=== PATIENT | male | born 1985 | race Hispanic/Latino ===

== ENCOUNTER 2017-02-06 08:02 | Inpatient (IN) | payer MEDICARE, OTHER ==
--- NOTE | 2017-01-31 08:45 | Admit Criteria Form ---
Admission Criteria Documentation: AMBULATORY SURGERY EXCEPTION CRITERIA Ambulatory Surgery Exception Criteria ( Place 'X' for any and all applicable criteria): Surgery or procedure performed on ambulatory basis may require inpatient stay for[A] ANY ONE of the following(1)(2)(3)(4)(5)(6)(7)(8)(9): [X] I. A preoperative situation, condition, or finding that warrants inpatient stay as indicated by ANY ONE of the following: [X] a) Inpatient care needed because of severity of a disease or condition rather than the surgery (eg, severe cardiac or respiratory disease, severe infection) (15) (16 ) (17) (18) [] b) Emergent procedure (eg, angioplasty for acute ischemia)(19) [] c) Complex surgical approach or situation as indicated by ANY ONE of the following(3): [] i) Open approach needed instead of usual endoscopic, transcatheter, or other less invasive procedure [] ii) Difficult approach because of previous operation [] iii) Airway monitoring required after open neck procedures(20)(21) [] iv) Large mass requiring unusually extensive dissection [] v) Additional complicating feature requiring inpatient care (eg, drain management)(22(23): [] d) Major surgery in a pt with high anesthetic risk as indicated by ANY ONE of the following (2)(3)(5)(7)(8): [] i) ASA risk class III or higher (severe systemic disease impairing function) [D] [] ii) Advanced age (eg, older than 85 years)(14)(24) [] iii) Symptomatic heart failure(25) [] iv) Symptomatic asthma or COPD(8)(21) [] v) Morbid obesity with hemodynamic or respiratory problems(20)( 21)(26)(27) [] vi) Obstructive sleep apnea(20)(21) [] vii) Former premature infants who are younger than 60 weeks [] viii) High risk for severe postoperative abnormalities (eg, severe postoperative hypocalcemia after parathyroidectomy for severe hyperparathyroidism)(27)( 28) [] ix) Unstable angina(25) [] e) Drug-related risk requiring inpatient stay as indicated by ANY ONE of the following(5)(10)(14)(32)(33) [] i) Procedure requires discontinuing drugs or other therapy (eg , antiarrhythmic medication, antiseizure medication), which necessitates inpatient observation or treatment.(18)(31) [] ii) Major surgery and high risk drug use as indicated by ANY ONE of the following: [] 1) Active abuse of cocaine or similar drug [] 2) Monoamine oxidase inhibitor use [] 3) Other drug identified as posing risk [] f) Inadequate outpatient care situation as indicated by ANY ONE of the following(5)(10)(14)(32)(33) [] i) Patient lives remote from medical facility and procedure has urgent complication potential, and temporary nearby residence cannot be arranged [] ii) Patient will have postprocedure incapacitation and inadequate assistance at home, or alternative level of care cannot be arranged. [] iii) Patient will have long general anesthesia or procedure side effect resolution time, and competent person to stay with patient on first postoperative night at home or alternative level of care cannot be arranged. []iv) Other inadequate outpatient situation that cannot be handled by other means [] II. A perioperative event, condition, or finding that warrants inpatient stay as indicated by ANY ONE of the following (1)(2)(3): [] a) Inadequate physiologic recovery: cardiovascular, respiratory, or hemodynamic status not normal or near preoperative baseline(18) [] b) Hemodynamic instability [] c) Patient not alert with near normal or baseline mental status [] d) Temperature not normal or as expected and not appropriate for outpatient treatment of condition [] e) Ambulatory or appropriate activity level status not yet achieved post procedure [E](34)(35)(36) [] f) Operative site not appropriate (eg, unexpected or excessive drainage or bleeding) [] g) Postoperative effects not resolved or adequately managed (eg, significant pain or vomiting not appropriate for outpatient or next level of care)(10)(12) [] h) Complicating features requiring inpatient care as indicated by ANY ONE of the following(37): [] i) Severe complications of procedure (eg, bowel injury, airway compromise, vascular injury,severe hemorrhage) [] ii) Extensive (eg, dissection far beyond usual scope of procedure ) or prolonged (eg, 120 minutes beyond usual) surgery needed requiring inpatient postoperative care [] iii) Conversion to an open or complex procedure that requires inpatient care (eg, open vs laparoscopic cholecystectomy, abdominal vs vaginal hysterectomy)(38) [] iv) Comorbid condition or test result identified during or post procedure that requires inpatient care (7) [] v) Malignant hyperthermia(30) [] vi) Other complicating feature requiring inpatient care(22)(23) Inpatient stay may be needed until ALL of the following are present (1)(2)(3)(4) (5)(6)(10)(14)(33)(40): []a) Physiologic recovery: cardiovascular, respiratory, and hemodynamic status normal or near preoperative baseline []b) Hemodynamic stability []c) Patient alert, with near normal or baseline mental status []d) Temperature appropriate: patient afebrile or temperature appropriate for outpt treatment of condition []e) Activity level appropriate: ambulatory or appropriate activity level post procedure []f) Operative site appropriate as indicated by ALL of the following: []i) Site dry or with expected drainage []ii) Any blood noted is as expected for procedure. []g) Postoperative effects resolved or managed as indicated by ALL of the following: []i) Pain management appropriate for outpatient (or next level of) care(10) []ii) Minimal nausea and vomiting: if present, successfully treated with oral medication(12) []iii) Headache, dizziness, or drowsiness (if present) are mild. []h) Voiding status acceptable as indicated by ANY ONE of the following: []i) Voiding spontaneously []ii) No voiding but instructions given for follow-up in 6 to 8 hours []iii) Urinary catheter in place, and instructions given for follow-up []i) Complicating features requiring inpatient care manageable at a lower level of care(37) []j) Comorbid conditions manageable at a lower level of care(37) The original [employer] content created by [employer] has been revised. The portions of the content which have been revised are identified through the use of italic text or in bold, and [employer] has neither reviewed nor approved the modified material. All other unmodified content is copyright [employer]. Please see references footnoted in the original [employer] edition 2016
[~2017-02-06 08:02] MED LIST: ANCEF/STERILE WATER 2 GM/20 ML IV NR
[2017-02-06] MEDS ORDERED: ZOFRAN IV PRN (13:41)
--- NOTE | 2017-02-06 13:42 | Anesthesia Consultation ---
Anesthesia Consult and Med Hx Date of service: 02/06/17 - Airway Anesthetic Teeth Evaluation: Good ROM Head & Neck: Adequate Mental/Hyoid Distance: Adequate Mallampati Class: Class II Intubation Access Assessment: Probably Good - Pulmonary Exam CTA: Yes - Cardiac Exam Cardiac Exam: RRR - Pre-Operative Health Status ASA Pre-Surgery Classification: ASA1 Proposed Anesthetic Plan: General - Pulmonary Hx Smoking: Yes (STOPPED 2014, 1 1/2 PPD X 10YRS) Hx Sleep Apnea: No (TC PRE SCREEN LOW RISK) - Cardiovascular System Hx Hypertension: No - Endocrine Hx End Stage Renal Disease: No Hx Insulin Dependent Diabetes: No Hx Hyperthyroidism: No - Other Systems Hx Cancer: No
--- NOTE | 2017-02-06 13:42 | Anesthesia Day of Surgery ---
Anesthesia Day of Surgery - Day of Surgery Patient Examined: Yes Patient H&P Reviewed: Yes Patient is NPO: Yes
[2017-02-06] MEDS ORDERED: NACL 0.9% 1000 ML 1,000 ML ONE ×2 (13:47→15:52)
[2017-02-06] MEDS ORDERED: VERSED IV NR ×2 (14:00)
[2017-02-06] MEDS ORDERED: NACL 0.9% 1000 ML 1,000 ML IV SCH ×2 (14:00)
[2017-02-06] MEDS ORDERED: PEPCID PO NR (14:00)
[2017-02-06] MEDS ORDERED: DIPRIVAN 10 MG/ML IV ONE (14:19)
[2017-02-06] MEDS ORDERED: DILAUDID ONE ×2 (14:19→16:17)
[2017-02-06] MEDS ORDERED: XYLOCAINE MPF 2% ONE (14:19)
[2017-02-06] MEDS ORDERED: XYLOCAINE 1% 20 mL ONE (14:56)
[2017-02-06] MEDS ORDERED: MARCAINE 0.25% INFILTRATI ONE ×2 (14:57→15:59)
[2017-02-06] MEDS ORDERED: NACL 0.9% IR ONE (14:58)
[2017-02-06] MEDS ORDERED: GARAMYCIN/NS 80 MG/100 ML 100 ML IV ONE (15:06)
[2017-02-06] MEDS ORDERED: ZOFRAN ONE (15:45)
[2017-02-06] MEDS ORDERED: DECADRON ONE (15:48)
--- NOTE | 2017-02-06 16:09 | Short Stay Summary ---
Short Stay Documentation Date of service: 02/06/17 - History H&P: obtained from office - Allergies and Medications Current Medications: Allergies meperidine HCl [From Demerol] Allergy (Verified 01/29/17 11:17) Unknown GIVEN TO PT - UNKNOWN REACTION- ALWAYS TOLD NOT TO TAKE IT. Home Medications Medication Instructions Recorded Confirmed Last Taken Type No Known Home Medications [No 01/29/17 01/29/17 Unknown History Reported Home Medications] Active Medications Cefazolin Sodium (Ancef/Sterile Water 2 Gm/20 Ml) 2 gm IV PREOP NR Stop: 02/06/17 23:59 Famotidine (Pepcid) 20 mg PO PREOP NR Stop: 02/06/17 19:00 Last Admin: 02/06/17 14:03 Dose: 20 mg Hydromorphone HCl (Dilaudid) 0.5 mg IV Q10MIN PRN PRN Reason: Pain , Severe (7-10) Stop: 02/09/17 13:42 Sodium Chloride (Nacl 0.9% 1000 Ml) 1,000 mls @ 75 mls/hr IV DIRECT ESTELLA Last Admin: 02/06/17 13:50 Dose: 75 mls/hr Midazolam HCl (Versed) 2 mg IV PREOP NR Stop: 02/06/17 23:59 Last Admin: 02/06/17 14:11 Dose: 2 mg - Brief post op/procedure progress note Date of procedure: 02/06/17 Pre-op diagnosis: left testes pain Post-op diagnosis: other (left testes mass) Procedure: scrotal exploration rt testes fixation left testes bx left radical orchiectomy excision of scrotal skin Anesthesia: LEWIS Surgeon: ANTONIO BROWN Mechanical Oxidizer: HOME WHITE Estimated blood loss: minimal Pathology: list (scrotal skin, left testes) Specimen disposition: to lab Condition: stable - Hospital course Hospital course: cipro & norco---given to family - Disposition Condition at discharge: Stable Disposition: DC-01 TO HOME OR SELFCARE Short Stay Discharge Plan Follow up with: PRIMARY CARE, [Primary Care Provider] - 7 Days
[2017-02-06] MEDS: DILAUDID IV PRN ×2 (16:35→16:47)
[2017-02-06] MEDS ORDERED: NORCO 5/325 PO PRN (17:05)
--- NOTE | 2017-02-06 17:10 | Post Anesthesia Evaluation ---
- Post Anesthesia Evaluation Patient Participated: Yes Airway Patent: Yes Stable Respiratory Function: Yes Nausea/Vomiting: No Temp > 96.8F: Yes Pain Manageable: Yes Adequeate Hydration: Yes Anesthesia Complications: No Block Receding Appropriately: Not Applicable Patient on Ventilator: No
[2017-02-06 18:58] VITALS: BP 128/85
== END 2017-02-06 18:30 | disposition home or self-care (01) | DRG 712 ==
LOC: OR 12:19 → UNDOADMIN 12:25 → 3A 12:25 → OR 12:29 → 3A 13:14 → EDSTATUS 15:45
PROVIDERS: ADMIT Urology; ATTEND Urology
PROC: 0VBB0ZX Excision of Left Testis, Open Approach, Diagnostic (ICD-10-PCS; principal; 2017-02-06)
PROC: 0VBB0ZZ Excision of Left Testis, Open Approach (ICD-10-PCS; 2017-02-06)
PROC: 0VB50ZX Excision of Scrotum, Open Approach, Diagnostic (ICD-10-PCS; 2017-02-06)
PROC: 0VJ80ZZ Inspection of Scrotum and Tunica Vaginalis, Open Approach (ICD-10-PCS; 2017-02-06)
DX: N45.3 Epididymo-orchitis (principal); Z71.3 Dietary counseling and surveillance; I10 Essential (primary) hypertension; F17.210 Nicotine dependence, cigarettes, uncomplicated
CPT/HCPCS: 88305; 88307; 88309; 88331; 88341; 88342; J0690; J1100; J1170; J1580; J2250; J2405; J2704; J7030

== ENCOUNTER 2021-05-04 04:49 | Emergency (ER) | payer OTHER ==
--- NOTE | 2021-05-04 06:45 | Emergency Department Report ---
ED Psych HPI - General Chief Complaint: Psych Stated Complaint: DEPRESSION Time Seen by Provider: 05/04/21 06:19 Source: patient, family Mode of arrival: Ambulatory - History of Present Illness Initial Comments: 35-year-old male with extensive psychiatric disorder presents to the hospital complaining increased anxiety, labile mood, and self harming behavior. Patient has been off of his medications since 2019 due to loss of insurance for the time using Klonopin, Ritalin, and Latuda. Patient states this week he has been under a lot of stress with his fiance. He is having episodes of hitting himself when he gets frustrated. Patient states he is his himself to believe the frustration and avoid harming others. Patient denies that he is suicidal but states he has "suicidal tendencies" due to self harming behavior. He denies visual auditory hallucinations or homicidal ideation. Patient states he is also supposed to be on testosterone due to past orchiectomy for testicular cancer and thinks this could be causing his mood swings as well. Patient denies suicidal attempt in the past. He denies substance abuse - Related Data Previous Rx's Medication Instructions Recorded Last Taken Type Divalproex Dr [DepaKOTE DR] 250 mg PO BID 30 Days #60 tablet 05/04/21 Unknown Rx QUEtiapine [SEROquel] 25 mg PO BID 30 Days #60 tablet 05/04/21 Unknown Rx Allergies Allergy/AdvReac Type Severity Reaction Status Date / Time meperidine HCl [From Demerol] Allergy Unknown Verified 01/29/17 11:17 ED Review of Systems ROS: Stated complaint: DEPRESSION Other details as noted in HPI Comment: All other systems reviewed and negative ED Past Medical Hx - Past Medical History Previous Medical History?: Yes Hx Hypertension: No Hx of Cancer: Yes (Testicular cancer) Hx Headaches / Migraines: Yes (MIRGAINES) Additional medical history: Bipolar 1 disorder, ADHD combined & disorder, anxiety, explosive mood - Surgical History Past Surgical History?: Yes Additional Surgical History: Orchiectomy - Social History Smoking Status: Current Every Day Smoker Substance Use Type: None - Medications Home Medications: Home Medications Medication Instructions Recorded Confirmed Last Taken Type Divalproex Dr [DepaKOTE DR] 250 mg PO BID 30 Days #60 tablet 05/04/21 Unknown Rx QUEtiapine [SEROquel] 25 mg PO BID 30 Days #60 tablet 05/04/21 Unknown Rx ED Physical Exam - General Limitations: No Limitations - Other Other exam information: General: No acute distress Head: Atraumatic Eyes: normal appearance Neck: Normal appearance, no midline tenderness Chest: Clear to auscultation bilaterally CV: Regular rate and rhythm Abdomen: Soft, normal bowel sounds, nontender, nondistended, no rebound or guarding Back: Normal inspection Extremity: Normal inspection, full range of motion Neuro: Alert O x 3, no facial asymmetry, speech clear, no gross motor sensory deficit Psych: Agitated, anxious, shaking his leg throughout examination Skin: No rash ED Course Vital Signs 05/04/21 05/04/21 05/04/21 04:50 08:30 10:53 Temperature 98.0 F 99.2 F Pulse Rate 89 87 Respiratory 18 18 18 Rate Blood Pressure 142/89 Blood Pressure 128/69 [Right] O2 Sat by Pulse 99 97 Oximetry - Reevaluation(s) Reevaluation #1: 05/04/21 09:12 Patient is agitated because he wants to leave. His behavior is escalating and security is at bedside. He was also agitated because he wanted to use the phone when he was brought back to psych I when I initially saw patient I informed him that he might be able to go however, when he expressed concern that his fiance said he is suicidal tendencies and he has self harming behavior I have made him a 1013 until he could be cleared by mental health. I went back in a room to explain this to him but he is agitated because he wants to leave. I informed psych to be consulted for immediate assessment to determine if patient is clear for discharge. She states she will evaluate patient soon. ED Medical Decision Making - Lab Data Result diagrams: 05/04/21 06:59 05/04/21 06:59 Lab Results 05/04/21 05/04/21 05/04/21 Range/Units 06:59 06:59 06:59 WBC 6.3 (4.5-11.0) K/mm3 RBC 4.83 (3.65-5.03) M/mm3 Hgb 14.7 (11.8-15.2) gm/dl Hct 42.7 (35.5-45.6) % MCV 89 (84-94) fl MCH 30 (28-32) pg MCHC 34 (32-34) % RDW 14.3 (13.2-15.2) % Plt Count 220 (140-440) K/mm3 Lymph % (Auto) 21.4 (13.4-35.0) % [place] % (Auto) 11.7 H (0.0-7.3) % Eos % (Auto) 1.1 (0.0-4.3) % Baso % (Auto) 0.6 (0.0-1.8) % Lymph # (Auto) 1.3 (1.2-5.4) K/mm3 [place] # (Auto) 0.7 (0.0-0.8) K/mm3 Eos # (Auto) 0.1 (0.0-0.4) K/mm3 Baso # (Auto) 0.0 (0.0-0.1) K/mm3 Seg Neutrophils % 65.2 (40.0-70.0) % Seg Neutrophils # 4.1 (1.8-7.7) K/mm3 Sodium 138 (137-145) mmol/L Potassium 3.8 (3.6-5.0) mmol/L Chloride 102.7 (98-107) mmol/L Carbon Dioxide 26 (22-30) mmol/L Anion Gap 13 mmol/L BUN 10 (9-20) mg/dL Creatinine 0.9 (0.8-1.3) mg/dL Estimated GFR > 60 ml/min BUN/Creatinine Ratio 11 % Glucose 97 (75-100) mg/dL Calcium 9.3 (8.4-10.2) mg/dL Urine Color (Yellow) Urine Turbidity (Clear) Urine pH (5.0-7.0) Ur Specific [place] (1.003-1.030) Urine Protein (Negative) mg/dL Urine Glucose (UA) (Negative) mg/dL Urine Ketones (Negative) mg/dL Urine Blood (Negative) Urine Nitrite (Negative) Urine Bilirubin (Negative) Urine Urobilinogen (<2.0) mg/dL Ur Leukocyte Esterase (Negative) Urine WBC (Auto) (0.0-6.0) /HPF Urine RBC (Auto) (0.0-6.0) /HPF U Epithel Cells (Auto) (0-13.0) /HPF Amorphous Crystals Urine Mucus /HPF Salicylates < 0.3 L (2.8-20.0) mg/dL Urine Opiates Screen Urine Methadone Screen Acetaminophen (10.0-30.0) ug/mL Ur Barbiturates Screen Ur Phencyclidine Scrn Ur Amphetamines Screen U Benzodiazepines Scrn Urine Cocaine Screen U Marijuana (THC) Screen Drugs of Abuse Note Plasma/Serum Alcohol (0-0.07) % 05/04/21 05/04/21 05/04/21 Range/Units 06:59 06:59 07:25 WBC (4.5-11.0) K/mm3 RBC (3.65-5.03) M/mm3 Hgb (11.8-15.2) gm/dl Hct (35.5-45.6) % MCV (84-94) fl MCH (28-32) pg MCHC (32-34) % RDW (13.2-15.2) % Plt Count (140-440) K/mm3 Lymph % (Auto) (13.4-35.0) % [place] % (Auto) (0.0-7.3) % Eos % (Auto) (0.0-4.3) % Baso % (Auto) (0.0-1.8) % Lymph # (Auto) (1.2-5.4) K/mm3 [place] # (Auto) (0.0-0.8) K/mm3 Eos # (Auto) (0.0-0.4) K/mm3 Baso # (Auto) (0.0-0.1) K/mm3 Seg Neutrophils % (40.0-70.0) % Seg Neutrophils # (1.8-7.7) K/mm3 Sodium (137-145) mmol/L Potassium (3.6-5.0) mmol/L Chloride (98-107) mmol/L Carbon Dioxide (22-30) mmol/L Anion Gap mmol/L BUN (9-20) mg/dL Creatinine (0.8-1.3) mg/dL Estimated GFR ml/min BUN/Creatinine Ratio % Glucose (75-100) mg/dL Calcium (8.4-10.2) mg/dL Urine Color Yellow (Yellow) Urine Turbidity Cloudy (Clear) Urine pH 7.0 (5.0-7.0) Ur Specific [place] 1.017 (1.003-1.030) Urine Protein <15 mg/dl (Negative) mg/dL Urine Glucose (UA) Neg (Negative) mg/dL Urine Ketones Neg (Negative) mg/dL Urine Blood Neg (Negative) Urine Nitrite Neg (Negative) Urine Bilirubin Neg (Negative) Urine Urobilinogen < 2.0 (<2.0) mg/dL Ur Leukocyte Esterase Neg (Negative) Urine WBC (Auto) 4.0 (0.0-6.0) /HPF Urine RBC (Auto) 3.0 (0.0-6.0) /HPF U Epithel Cells (Auto) < 1.0 (0-13.0) /HPF Amorphous Crystals 3+ Urine Mucus Few /HPF Salicylates (2.8-20.0) mg/dL Urine Opiates Screen Urine Methadone Screen Acetaminophen 5.0 L (10.0-30.0) ug/mL Ur Barbiturates Screen Ur Phencyclidine Scrn Ur Amphetamines Screen U Benzodiazepines Scrn Urine Cocaine Screen U Marijuana (THC) Screen Drugs of Abuse Note Plasma/Serum Alcohol < 0.01 (0-0.07) % 05/04/21 Range/Units 07:25 WBC (4.5-11.0) K/mm3 RBC (3.65-5.03) M/mm3 Hgb (11.8-15.2) gm/dl Hct (35.5-45.6) % MCV (84-94) fl MCH (28-32) pg MCHC (32-34) % RDW (13.2-15.2) % Plt Count (140-440) K/mm3 Lymph % (Auto) (13.4-35.0) % [place] % (Auto) (0.0-7.3) % Eos % (Auto) (0.0-4.3) % Baso % (Auto) (0.0-1.8) % Lymph # (Auto) (1.2-5.4) K/mm3 [place] # (Auto) (0.0-0.8) K/mm3 Eos # (Auto) (0.0-0.4) K/mm3 Baso # (Auto) (0.0-0.1) K/mm3 Seg Neutrophils % (40.0-70.0) % Seg Neutrophils # (1.8-7.7) K/mm3 Sodium (137-145) mmol/L Potassium (3.6-5.0) mmol/L Chloride (98-107) mmol/L Carbon Dioxide (22-30) mmol/L Anion Gap mmol/L BUN (9-20) mg/dL Creatinine (0.8-1.3) mg/dL Estimated GFR ml/min BUN/Creatinine Ratio % Glucose (75-100) mg/dL Calcium (8.4-10.2) mg/dL Urine Color (Yellow) Urine Turbidity (Clear) Urine pH (5.0-7.0) Ur Specific [place] (1.003-1.030) Urine Protein (Negative) mg/dL Urine Glucose (UA) (Negative) mg/dL Urine Ketones (Negative) mg/dL Urine Blood (Negative) Urine Nitrite (Negative) Urine Bilirubin (Negative) Urine Urobilinogen (<2.0) mg/dL Ur Leukocyte Esterase (Negative) Urine WBC (Auto) (0.0-6.0) /HPF Urine RBC (Auto) (0.0-6.0) /HPF U Epithel Cells (Auto) (0-13.0) /HPF Amorphous Crystals Urine Mucus /HPF Salicylates (2.8-20.0) mg/dL Urine Opiates Screen Negative Urine Methadone Screen Negative Acetaminophen (10.0-30.0) ug/mL Ur Barbiturates Screen Negative Ur Phencyclidine Scrn Negative Ur Amphetamines Screen Positive U Benzodiazepines Scrn Negative Urine Cocaine Screen Negative U Marijuana (THC) Screen Negative Drugs of Abuse Note Disclamer Plasma/Serum Alcohol (0-0.07) % - Medical Decision Making uds + for amphetamines Patient received mental health evaluation. Patient does not endorse suicidal ideation when interviewed by mental health scraper meat. 1013 ED hold discontinued. Medications prescribed as per mental health nurse practitioner and patient was provided outpatient resources Patient did ultimately calm down after he was informed he will be discharged Critical Care Time: No Critical care attestation.: If time is entered above; I have spent that time in minutes in the direct care of this critically ill patient, excluding procedure time. ED Disposition Clinical Impression: Bipolar 1 disorder, Self-harming behavior, Medical clearance for psychiatric admission, Amphetamine abuse Disposition: 01 HOME / SELF CARE / HOMELESS Is pt being admited?: No Does the pt Need Aspirin: No Condition: Stable Instructions: Managing Bipolar Disorder, Substance Use Disorder and Mental Illness Additional Instructions: Take the medication as prescribed. Follow-up with your doctor or doctor/clinic provided. Return if symptoms worsen as indicated by your discharge instructions. Professional and Agency Contacts To help [facility] (04/03) [place] Crisis Line: Suicide Prevention Line: Crisis Text Line: Text START to [phone] Emergency: 911 Outpatient COMMUNITY Behavioral Health Resources: [facility]: [facility] [address] [place], [place] [address] [facility] [address] [place] [address] Saturday thru Saturday - 8am - 5pm Call to schedule an assessment for mental health and substance abuse programs [facility] Address: [address] [address] Saturday thru Saturday- 7am-2pm [facility] Address: [address] [place] [address] Saturday thru Saturday: 8:30AM-5PM Prescriptions: Divalproex Dr [DepaKOTE ] 250 mg PO BID 30 Days #60 tablet QUEtiapine [SEROquel] 25 mg PO BID 30 Days #60 tablet Referrals: PRIMARY CARE, [Primary Care Provider] - 3-5 Days Time of Disposition: 12:12
[2021-05-04 07:29] LABS: Basophils % (Auto) 0.6 % (0.0-1.8); Eosinophils # (Auto) 0.1 K/mm3 (0.0-0.4); Eosinophils % (Auto) 1.1 % (0.0-4.3); Hematocrit 42.7 % (35.5-45.6); Hemoglobin 14.7 gm/dl (11.8-15.2); Lymphocytes # (Auto) 1.3 K/mm3 (1.2-5.4); Lymphocytes % (Auto) 21.4 % (13.4-35.0); Mean Corpuscular HGB Conc 34 % (32-34); Mean Corpuscular Volume 89 fl (84-94); Monocytes # (Auto) 0.7 K/mm3 (0.0-0.8); Monocytes % (Auto) 11.7 % (0.0-7.3); Platelet Count 220 K/mm3 (140-440); Red Blood Count 4.83 M/mm3 (3.65-5.03); Red Cell Distribution Width 14.3 % (13.2-15.2)
[2021-05-04 07:44] LABS: Amorphous Crystals,Urine 3+; Bilirubin,Urine NEG (Negative); Blood,Urine NEG (Negative); Color,Urine Yellow (Yellow); Mucus,Urine FEW /HPF; Protein,Urine <15 mg/dL mg/dL (Negative); Urobilinogen,Urine < 2.0 mg/dL (<2.0)
[2021-05-04 07:45] LABS: Benzodiazepines Screen,Urine Negative; Cannabinoid Screen,Urine Negative; Cocaine Screen,Urine Negative; Methadone Screen,Urine Negative; Opiate Screen,Urine Negative
[2021-05-04 07:48] LABS: BUN/Creatinine Ratio 11; Blood Urea Nitrogen 10 mg/dL (9-20); Calcium 9.3 mg/dL (8.4-10.2); Hemolysis Index 11
[2021-05-04 08:06] LABS: Amphetamine Screen,Urine Positive
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
[2021-05-04 12:41] VITALS: BP 107/65
== END 2021-05-04 12:30 | disposition home or self-care (01) ==
LOC: ED 04:49
DX: F31.9 Bipolar disorder, unspecified (principal); Z91.5 Personal history of self-harm; F15.20 Other stimulant dependence, uncomplicated; Z13.30 Encounter for screening examination for mental health and behavioral disorders, unspecified; Z88.5 Allergy status to narcotic agent; G43.909 Migraine, unspecified, not intractable, without status migrainosus; F90.9 Attention-deficit hyperactivity disorder, unspecified type; F17.200 Nicotine dependence, unspecified, uncomplicated
CPT/HCPCS: 36415; 80048; 80307; 80320; 81001; 85025; 99284; G0480